=== PATIENT | female | born 1945 | race Caucasian/White ===

== ENCOUNTER 2016-10-27 22:29 | Emergency (ER) | payer OTHER ==
[~2016-10-27] VITALS: Ht 157.5 cm; Wt 62.7 kg
[2016-10-27 22:30] VITALS: BP 187/97
[2016-10-27] MEDS ORDERED: PHENAZOPYRIDINE 200 MG TABLET PO ONE (23:30)
[2016-10-27] MEDS ORDERED: CEFDINIR 300 MG CAPSULE PO ONE (23:30)
== END 2016-10-28 00:04 | disposition home or self-care (01) ==
LOC: ED 23:45
DX: N30.01 Acute cystitis with hematuria (principal)
CPT/HCPCS: 81001; 87077; 87086; 87186; 99284

== ENCOUNTER 2017-10-27 20:11 | Emergency (ER) | payer OTHER ==
[~2017-10-27] VITALS: Ht 157.5 cm; Wt 63.1 kg
[2017-10-27 20:46] LABS: BASOPHILS # (AUTO) 0.14 x10^3/uL (0-0.1); BASOPHILS % (AUTO) 1 % (0-1); EOSINOPHILS % (AUTO) 5 % (1-7); LYMPHOCYTES # (AUTO) 1.75 x10^3/uL (1-3.4); LYMPHOCYTES % (AUTO) 15 % (22-44); MD NO; MEAN CORPUSCULAR HEMOGLOBIN 32.1 pg (27.0-34.8); MEAN CORPUSCULAR HGB CONC 34.4 g/dL (32.4-35.8); MEAN CORPUSCULAR VOLUME 93.4 fL (80-100); MEAN PLATELET VOLUME 8.2 fL (7.4-10.4); MONOCYTES # (AUTO) 0.72 x10^3/uL (0.2-0.8); MONOCYTES % (AUTO) 6 % (2-9); NEUTROPHILS # (AUTO) 8.77 x10^3/uL (1.8-6.8); NEUTROPHILS % (AUTO) 73 % (42-75); PLATELET COUNT 303 x10^3/uL (130-400); RED BLOOD COUNT 4.13 x10^6/uL (3.82-5.3); RED CELL DISTRIBUTION WIDTH 12.7 % (9.6-15.2)
[2017-10-27 20:55] LABS: ALBUMIN 4.4 g/dL (3.4-5.0); ANION GAP 11 mmol/L (5-15); CALCIUM 9.3 mg/dL (8.5-10.1); CHLORIDE 92 mmol/L (98-107); CREATININE 1.07 mg/dL (0.55-1.02)
[2017-10-27 21:46] LABS: MICROSCOPIC INDICATED
[2017-10-27 21:47] LABS: CULTURE INDICATED? YES
[2017-10-27 21:54] VITALS: BP 181/72
[2017-10-27] MEDS ORDERED: LEVO25TA4 PO (22:01)
== END 2017-10-27 22:47 | disposition home or self-care (01) ==
LOC: ED 22:05
DX: N39.0 Urinary tract infection, site not specified (principal); I10 Essential (primary) hypertension; E87.1 Hypo-osmolality and hyponatremia; R31.9 Hematuria, unspecified; M54.32 Sciatica, left side
CPT/HCPCS: 36415; 71046; 80048; 81001; 82040; 85025; 87077; 87086; 87186; 93005; 99285

== ENCOUNTER 2019-06-24 16:33 | Emergency (ER) | payer MEDICARE ==
[~2019-06-24] VITALS: Ht 157.5 cm; Wt 65.0 kg
[~2019-06-24 16:33] MED LIST: LEVO25TA4 PO
--- NOTE | 2019-06-24 17:12 | NUR ---
PT TO ED AFTER REFERRAL FROM US FOR HTN. PT WAS SEEN AT AND DIAGNOSED WITH UTI. PT DENIES ANY S/S OTHER THAN UTI S/S. PT CONNECTED TO ALL MONITORS. HTN, ALL OTHER VSS ON RA. NO NEEDS EXPRESSED. CALL LIGHT WITHIN REACH. AWIAITNG ORDERS.
[2019-06-24 17:46] LABS: MICROSCOPIC INDICATED
[2019-06-24 17:49] LABS: CULTURE INDICATED? YES
[2019-06-24 17:56] LABS: ANION GAP 9 mmol/L (5-15); CALCIUM 9.6 mg/dL (8.5-10.1); CHLORIDE 99 mmol/L (98-107); CREATININE 0.81 mg/dL (0.55-1.02)
[2019-06-24 17:59] LABS: TROPONIN I < 0.015 ng/mL (0.000-0.045)
[2019-06-24] MEDS ORDERED: CEFDINIR 300 MG CAPSULE PO ONE (18:30)
[2019-06-24] MEDS ORDERED: CEFDINIR 300 MG CAPSULE ONE (18:30)
[2019-06-24 18:31] VITALS: BP 192/82
[2019-06-24 18:34] LABS: BASOPHILS # (AUTO) 0.02 x10^3/uL (0-0.1); BASOPHILS % (AUTO) 0 % (0-1); EOSINOPHILS # (AUTO) 0.08 x10^3/uL (0-0.4); EOSINOPHILS % (AUTO) 1 % (1-7); LYMPHOCYTES # (AUTO) 1.09 x10^3/uL (1-3.4); LYMPHOCYTES % (AUTO) 11 % (22-44); MD SCAN; MEAN CORPUSCULAR HEMOGLOBIN 31.9 pg (27.0-34.8); MEAN CORPUSCULAR VOLUME 96.6 fL (80-100); MEAN PLATELET VOLUME 7.8 fL (7.4-10.4); MONOCYTES # (AUTO) 0.28 x10^3/uL (0.2-0.8); MONOCYTES % (AUTO) 3 % (2-9); NEUTROPHILS # (AUTO) 8.88 x10^3/uL (1.8-6.8); NEUTROPHILS % (AUTO) 86 % (42-75); PLATELET COUNT 200 x10^3/uL (130-400); RED BLOOD COUNT 4.06 x10^6/uL (3.82-5.3); RED CELL DISTRIBUTION WIDTH 12.2 % (9.6-15.2)
== END 2019-06-24 18:51 | disposition home or self-care (01) ==
LOC: ED 18:44
DX: N30.01 Acute cystitis with hematuria (principal); I10 Essential (primary) hypertension
CPT/HCPCS: 36415; 80048; 81001; 84484; 85025; 87086; 93005; 99284